=== PATIENT | male | born 1970 | race Hispanic/Latino ===

== ENCOUNTER 2017-03-09 15:54 | Emergency (ER) | payer MEDICAID ==
[2017-03-09 16:04] VITALS: RESP 16; O2SAT 97
--- NOTE | 2017-03-09 17:45 | C.PDOC ---
History Of Present Illness 46 year old male presents to the emergency department with complaints of three days of rash on chest and right abdomen with blistering after sun exposure last weekend. Patient states he has been applying bacitracin with minimal relief. He denies any trauma, chest pain, or other complaints at this time. Time Seen by Provider: 03/09/17 17:18 Chief Complaint (Nursing): Abnormal Skin Integrity History Per: Patient History/Exam Limitations: no limitations Onset/Duration Of Symptoms: Days (approximately 6 days ) Current Symptoms Are (Timing): Still Present Recent travel outside of the [place]: No Past Medical History Reviewed: Historical Data, Nursing Documentation, Vital Signs Vital Signs: Last Vital Signs Temp 97.5 F L 03/09/17 18:01 Pulse 55 L 03/09/17 18:01 Resp 16 03/09/17 18:01 BP 124/71 03/09/17 18:01 Pulse Ox 97 03/09/17 18:01 - Medical History PMH: HTN Family History: Denies: [place], CAD - Social History Hx Tobacco Use: No Hx Alcohol Use: No Hx Substance Use: No - Immunization History Hx Tetanus Toxoid Vaccination: No Hx Influenza Vaccination: Yes Hx Pneumococcal Vaccination: No Review Of Systems Constitutional: Negative for: Fever, Chills ENT: Negative for: Nose Discharge Cardiovascular: Negative for: Palpitations Respiratory: Negative for: Cough, Shortness of Breath Gastrointestinal: Negative for: Nausea, Vomiting, Abdominal Pain, Diarrhea Skin: Positive for: Rash (on chest and right abdomen ) Physical Exam - Physical Exam Appears: Non-toxic, No Acute Distress Skin: Warm, Dry, Rash (Tender dry areas with no vesicles that crosses the midline of the chest. Mild veda erythema surrounding area 60 cm x 15cm that does not respect the dermatome. ) Head: Atraumatic Eye(s): bilateral: Normal Inspection, PERRL, EOMI Oral Mucosa: Moist Neck: Supple Chest: Symmetrical, No Deformity Cardiovascular: Rhythm Regular Respiratory: Normal Breath Sounds, No Rhonchi, No Wheezing Gastrointestinal/Abdominal: Soft, No Tenderness, No Distention, No Guarding, No Rebound Neurological/Psych: Oriented x3 ED Course And Treatment O2 Sat by Pulse Oximetry: 97 (room air ) Medical Decision Making Medical Decision Making: after sun exposure, rash crosses midline and does not follow a dermatome. ? early mild cellulitis, no fevers and only mild pain @ sternal area. no wetness, no vesicles, nothing to culture empiric KEflex Disposition Doctor Will See Patient In The: Office Counseled Patient/Family Regarding: Studies Performed, Diagnosis - Disposition Referrals: Gee Mena [Staff Provider] - Disposition: HOME/ ROUTINE Disposition Time: 17:45 Condition: GOOD Additional Instructions: keflex 500 mg (antibiotic) twice a day for 5 days Bacitracin ointment to cover the wounds- twice a day Motrin 600 mg every 6 hours as needed for pain/swelling Pepcid 20 mg @ night to prevent stomach irritation of the stomach from the Motrin Follow-up with Dr. Mena in 2-3 days for a re-evaluation. Prescriptions: Bacitracin OINT 1 applic TP DAILY #1 tube Cephalexin [Keflex] 500 mg PO Q12 #9 capsule Instructions: Dermatitis (ED) Forms: [employer] (Syriac) - Clinical Impression Clinical Impression: Skin lesion - Scribe Statement The provider has reviewed the documentation as recorded by the Scribmarielena Faye All medical record entries made by the Scribe were at my direction and personally dictated by me. I have reviewed the chart and agree that the record accurately reflects my personal performance of the history, physical exam, medical decision making, and the department course for this patient. I have also personally directed, reviewed, and agree with the discharge instructions and disposition.
[2017-03-09] MEDS ORDERED: Bacitracin 500 Units/gm Oint Foilpak UD TOP ONE (17:53)
[2017-03-09] MEDS ORDERED: Bacitracin 500 Units/gm Oint Foilpak UD ONE (18:00)
[2017-03-09 18:01] VITALS: BP 124/71; PULSE 55; TEMP 97.5
== END 2017-03-09 18:24 | disposition home or self-care (01) ==
LOC: C.ER 15:54
DX: L98.8 Other specified disorders of the skin and subcutaneous tissue (principal)